=== PATIENT | male | born 1955 | race Caucasian/White ===

== ENCOUNTER 2022-07-05 11:46 | Inpatient (IN) | payer MEDICARE, SELFPAY ==
[2022-07-05] VITALS (7 sets, daily range): BP systolic 115–177; BP diastolic 70–116; PULSE 71–90; RESP 16–20; TEMP 36.6–37.1; O2SAT 95–100; BMI 21.9
--- NOTE | 2022-07-05 | ECG_ITS ---
Test Reason : PSYCH Blood Pressure : / mmHG Vent. Rate : 074 BPM Atrial Rate : 074 BPM P-R Int : 142 ms QRS Dur : 088 ms QT Int : 378 ms P-R-T Axes : 000 -22 010 degrees QTc Int : 419 ms Normal sinus rhythm Normal ECG When compared with ECG of 16-MAR-2020 03:17, No significant change was found Referred By: Marylou Lambert Electronically Signed By:WANDA WEI
--- NOTE | ~2022-07-05 | CT_ITS ---
EXAMINATION: CT HEAD WITHOUT CONTRAST CLINICAL INFORMATION: Fall. COMPARISON: None TECHNIQUE: Contiguous axial imaging was performed from the skull base to vertex without intravenous administration of contrast. This CT examination was performed using dose optimization techniques as appropriate, variously including the following: *Automated exposure control *Adjustment of mA and/or kV according to patient size (this includes techniques or standardized protocols for targeted exams where dose is matched to indication/reason for exam; i.e. extremities or head) *Use of iterative reconstruction technique DLP: 680 mGy-cm FINDINGS: There is no evidence of acute intracranial hemorrhage or territorial infarction. No abnormal mass effect or midline shift is seen. Barillas to white matter differentiation is well preserved. No extra-axial fluid collections are identified. No hydrocephalus. No significant volume loss. There is no abnormal attenuation within the brain parenchyma. No acute osseous or soft tissue abnormality. Bilateral mucoperiosteal thickening of the maxillary sinuses. Small secretions within left mastoid air cells. Right mastoid air cells are clear. CT/CT head/brain wo IV con IMPRESSION: No acute intracranial pathology.
--- NOTE | 2022-07-05 12:07 | ED.PSYCH ---
HPI - Psych General Chief Complaint: Psychiatric Symptoms Stated Complaint: SECTION 12, ETOH WITHDRAWAL Time Seen by Provider: 07/05/22 12:04 Source: patient and EMS Mode of arrival: EMS Limitations: no limitations History of Present Illness HPI Narrative: Patient presents to the emergency department via EMS. He is coming from [facility] today. Patient was transferred to that facility today from [facility]. While at [facility] he was endorsing SI as well as seeking detox from alcohol, heroin, crack cocaine. Per EMS report he was sent [facility] due to concerns for acute alcohol withdrawal with high scoring CIWA scale. While at [facility] he required benzodiazepines for treatment of withdrawal. Patient reports that he last drank alcohol a little over 24 hours ago, used heroin and crack cocaine 2 days ago. He does report a history of withdrawal seizures in the past. He was previously hospitalized in [place] approximately 5 months ago with severe withdrawal symptoms by his report. He is currently endorsing SI, he is vague and does not provide a specific plan. Related Data Allergies Allergy/AdvReac Type Severity Reaction Status Date / Time No Known Allergies Allergy Unverified 06/22/20 19:51 [No Known Allergies*] Review of Systems Review of Systems: Constitutional : No Fever, No Chills. Positive body aches ENT/Mouth : No Ear Pain, No Nasal Congestion, No sore throat Eyes: No Eye Pain, No Swelling, No Redness Cardiovascular : No Chest Pain, No SOB Respiratory : No Cough, No Sputum, No Dyspnea Gastrointestinal : No Nausea, No Vomiting, No Diarrhea, No Hematochezia, No Melena Genitourinary : No Dysuria, No Urinary Frequency, No Hematuria Musculoskeletal : No Myalgias Skin : No Skin Lesions, No rash Neuro : No Weakness, No Numbness, No Paresthesias, No Dizziness, No Headache Psych : positive Anxiety, positive Depression, positive SI/HI Heme/Lymph: No Lymphadenopathy Endocrine : No Polyuria, No Polydipsia Yes all other systems are reviewed and are negative ON LICENSE OF [facility] Past Medical History Attestation statement: The following information was validated with the patient. Source: old records reviewed Social History Social History Advance Directives: No Advance Directives Information Provided: No Physical Exam Vital Signs: Vital Signs: Last Vital Signs Temp 98.5 F 07/05/22 20:21 Pulse 87 07/05/22 20:21 Resp 17 07/05/22 20:21 BP 127/74 07/05/22 20:21 Pulse Ox 98 07/05/22 20:21 O2 Del Method 07/05/22 20:21 BMI result Body Mass Index 21.9 Appearance: Alert.?Oriented to person, place and time. No acute distress.? Appears uncomfortable. He is tremulous. Eyes: Pupils equal, round and reactive to light.? ENT: Pharynx normal.?? Neck: Normal inspection.? Neck supple.?? CVS: Heart sounds normal. Normal heart rate and rhythm.? Pulses normal.?? Respiratory: No respiratory distress.? Lung sounds clear to auscultation bilaterally?? Abdomen: Soft and non-tender. Normoactive bowel sounds. ? Skin: Skin warm and dry.? Normal skin color.? Normal skin turgor.?? Extremities: No lower extremity edema.? Neuro: Moves all extremities spontaneously. Sensation intact bilaterally. CN II-XII intact. No focal neuro deficits. Ambulates with normal steady gait. Course Course Course Narrative: Patient is a 67-year-old male with a past medical history of polysubstance abuse, anxiety, hypertension, hepatitis C, BPH presenting to the emergency department today from detox Center with concerns for acute alcohol withdrawal and suicidal ideations. CIWA 14, patient received phenobarbital intramuscular 10 mg/kg. Obtain basic lab conditions ethanol level and drug of abuse screen. Reevaluation(s) Reevaluation #1: Labs are overall unremarkable. Urinalysis positive for fentanyl, benzodiazepines, and cocaine. Ethanol level is undetectable. Symptoms improving significantly after phenobarbital. Patient does endorse some generalized anxiety, will discontinue phenobarbital at this time and transition to oral lorazepam. Patient was evaluated by care team, unable to make contact with [facility] Sal[facility] to determine whether patient may return to that facility. Patient has been accepted for inpatient psych to under Dr. Pepe. Patient updated on plan of care and verbalized understanding. [facility] - Psych Medical Records Attestation: I reviewed the patient's medical records. Lab Data Attestation: I reviewed the patient's lab results. Result diagrams: 07/05/22 12:44 07/05/22 12:44 Labs: Lab Results 07/05/22 07/05/22 07/05/22 Range/Units 12:33 12:44 12:44 WBC 10.0 (4.8-10.8) X10*3/uL RBC 4.94 (4.60-5.80) X10*6/uL Hgb 14.8 (14.0-18.0) g/dl Hct 44.4 (42.0-52.0) % MCV 89.9 (80.0-98.0) fL MCH 30.0 (27.0-33.0) pg MCHC 33.3 (31.0-36.0) g/dl RDW 12.7 (11.0-16.0) % Plt Count 239 (160-400) X10*3/uL MPV 10.5 (9.4-12.4) fL Immature Gran % (Auto) 0.5 H (0.0-0.4) % Neut % (Auto) 80.6 H (45-73) % Lymph % (Auto) 13.0 L (20-40) % Marshall % (Auto) 5.2 (2-11) % Eos % (Auto) 0.5 (0-4) % Baso % (Auto) 0.2 (0-2) % Lymph # (Auto) 1.3 (1.2-4.9) X10*3/uL Marshall # (Auto) 0.5 (0.1-1.2) X10*3/uL Eos # (Auto) 0.1 (0.0-0.4) X10*3/uL Baso # (Auto) 0.0 (0.0-0.2) X10*3/uL Abs Immat Gran (auto) 0.05 H (0.00-0.03) X10*3/uL Absolute Neuts (auto) 8.0 (2.0-8.3) x10*3/uL Absolute Nucleated RBC 0.000 (0.0-0.012) X10*3/uL Nucleated RBC % (auto) 0.0 (0.0-0.2) /100WBC Sodium 138 (135-145) mmol/L Potassium 4.2 (3.3-5.1) mmol/L Chloride 102 (96-108) mmol/L Carbon Dioxide 21 L (22-29) mmol/L Anion Gap 19 (12-20) BUN 22 H (9-16) mg/dL Creatinine 0.81 (0.5-1.4) mg/dL Estim Creat Clear Calc 81.6 Estimated GFR > 60 Random Glucose 97 (60-115) mg/dL Calcium 9.4 (8.4-10.2) mg/dL Total Bilirubin 0.9 (0.0-1.0) mg/dL AST 32 (5-37) U/L ALT 23 (0-40) U/L Alkaline Phosphatase 92 (39-117) U/L Total Protein 7.2 (6.5-8.0) g/dL Albumin 4.3 (3.5-5.0) g/dL Urine Opiates Screen (Not Detect) Urine Fentanyl Screen (Not Detect) Ur Barbiturates Screen (Not Detect) Ur Phencyclidine Scrn (Not Detect) Ur Amphetamines Screen (Not Detect) U Benzodiazepines Scrn (Not Detect) Urine Cocaine Screen (Not Detect) U Marijuana (THC) Screen (Not Detect) Ethyl Alcohol < 10 mg/dL COVID-19 (SHU) Negative (Negative) COVID-19 Clin Com See Note 07/05/22 Range/Units 14:18 WBC (4.8-10.8) X10*3/uL RBC (4.60-5.80) X10*6/uL Hgb (14.0-18.0) g/dl Hct (42.0-52.0) % MCV (80.0-98.0) fL MCH (27.0-33.0) pg MCHC (31.0-36.0) g/dl RDW (11.0-16.0) % Plt Count (160-400) X10*3/uL MPV (9.4-12.4) fL Immature Gran % (Auto) (0.0-0.4) % Neut % (Auto) (45-73) % Lymph % (Auto) (20-40) % Marshall % (Auto) (2-11) % Eos % (Auto) (0-4) % Baso % (Auto) (0-2) % Lymph # (Auto) (1.2-4.9) X10*3/uL Marshall # (Auto) (0.1-1.2) X10*3/uL Eos # (Auto) (0.0-0.4) X10*3/uL Baso # (Auto) (0.0-0.2) X10*3/uL Abs Immat Gran (auto) (0.00-0.03) X10*3/uL Absolute Neuts (auto) (2.0-8.3) x10*3/uL Absolute Nucleated RBC (0.0-0.012) X10*3/uL Nucleated RBC % (auto) (0.0-0.2) /100WBC Sodium (135-145) mmol/L Potassium (3.3-5.1) mmol/L Chloride (96-108) mmol/L Carbon Dioxide (22-29) mmol/L Anion Gap (12-20) BUN (9-16) mg/dL Creatinine (0.5-1.4) mg/dL Estim Creat Clear Calc Estimated GFR Random Glucose (60-115) mg/dL Calcium (8.4-10.2) mg/dL Total Bilirubin (0.0-1.0) mg/dL AST (5-37) U/L ALT (0-40) U/L Alkaline Phosphatase (39-117) U/L Total Protein (6.5-8.0) g/dL Albumin (3.5-5.0) g/dL Urine Opiates Screen Not Detected (Not Detect) Urine Fentanyl Screen POSITIVE H (Not Detect) Ur Barbiturates Screen Not Detected (Not Detect) Ur Phencyclidine Scrn Not Detected (Not Detect) Ur Amphetamines Screen Not Detected (Not Detect) U Benzodiazepines Scrn POSITIVE H (Not Detect) Urine Cocaine Screen POSITIVE H (Not Detect) U Marijuana (THC) Screen Not Detected (Not Detect) Ethyl Alcohol mg/dL COVID-19 ([facility]U) (Negative) COVID-19 Clin Com Discharge Plan Discharge Clinical Impression: Suicidal ideation, Polysubstance use disorder, Alcohol withdrawal Patient Disposition: Admitted As Inpatient
[2022-07-05 12:49] LABS: MANUAL DIFF FLAG NO
[2022-07-05 12:54] LABS: Basophils Percent Auto 0.2 % (0-2); Eosinophils Absolute Auto 0.1 X10*3/uL (0.0-0.4); Eosinophils Percent Auto 0.5 % (0-4); Hematocrit 44.4 % (42.0-52.0); Hemoglobin 14.8 g/dl (14.0-18.0); Imm Gran Abs Auto 0.05 X10*3/uL (0.00-0.03); Imm Gran Pct Auto 0.5 % (0.0-0.4); Lymphocytes Absolute Auto 1.3 X10*3/uL (1.2-4.9); Mean Corpuscular HGB Conc 33.3 g/dl (31.0-36.0); Mean Corpuscular Volume 89.9 fL (80.0-98.0); Mean Platelet Volume 10.5 fL (9.4-12.4); Monocytes Absolute Auto 0.5 X10*3/uL (0.1-1.2); Monocytes Percent Auto 5.2 % (2-11); Neutrophils Percent Auto 80.6 % (45-73); Platelet Count 239 X10*3/uL (160-400); Red Blood Count 4.94 X10*6/uL (4.60-5.80); Red Cell Distribution Width 12.7 % (11.0-16.0)
[2022-07-05 13:05] LABS: Alanine Aminotransferase 23 U/L (0-40); Albumin Level 4.3 g/dL (3.5-5.0); Alkaline Phosphatase 92 U/L (39-117); Anion Gap 19 (12-20); Aspartate Amino Transferase 32 U/L (5-37); Bilirubin Total 0.9 mg/dL (0.0-1.0); Blood Urea Nitrogen 22 mg/dL (9-16); Calcium 9.4 mg/dL (8.4-10.2); Carbon Dioxide 21 mmol/L (22-29); Chloride 102 mmol/L (96-108); Creatinine Clr Calc Pharmacy 81.6; Estimated Glomerular Filt Rate > 60; Ethanol < 10 mg/dL; Glucose Random 97 mg/dL (60-115); Potassium 4.2 mmol/L (3.3-5.1); Sodium 138 mmol/L (135-145); Total Protein 7.2 g/dL (6.5-8.0)
[2022-07-05 13:05] LABS: COVID-19 Test Negative (Negative); IDNOW Serial# 16C4AD1C
[2022-07-05] MEDS: PHENobarbitaL sodium 130 MG/ML IM ONCE 265 MG IM (13:11)
--- NOTE | 2022-07-05 13:15 | PC.NURSE ---
PT sectioned 12 from [facility] for concerns SI with plan to overdose. He states SI, denies HI. PT states he is a daily drinker, last drink was yesterday, also reports substance abuse. 1:1 sitter at beside, seizure precautions in place, IV and labs obtained, medications given as ordered.VSS.
[2022-07-05 14:36] LABS: Amphetamine Screen Urine Not Detected (Not Detect); Barbiturates, Urine Not Detected (Not Detect); Benzodiazepines Screen Urine POSITIVE (Not Detect); Cannabinoid Screen Urine Not Detected (Not Detect); Cocaine Screen Urine POSITIVE (Not Detect); Fentanyl, urine POSITIVE (Not Detect); Opiate Screen Urine Not Detected (Not Detect); Phencyclidine Screen Urine Not Detected (Not Detect)
--- NOTE | 2022-07-05 14:43 | MHC.CARE ---
CARE Team attempted to call Magali mutliple times regarding Pts bed. Plan for CARE Team to consider admission if magali does contact [facility] by 3pm.
[2022-07-05] MEDS: Acetaminophen 325 MG TABLET 650 MG PO (15:14)
[2022-07-05] MEDS: LORazepam 1 MG TABLET 2 MG PO ×2 (16:03→23:38)
[2022-07-05] MEDS: traZODone HCL 50 MG TABLET PO (23:32)
[2022-07-05] MEDS: cloNIDine HCL 0.1 MG TABLET PO (23:38)
[2022-07-06 01:40] VITALS: BP 102/60; PULSE 81; RESP 18; O2SAT 97
--- NOTE | 2022-07-06 02:24 | PC.NURSE ---
Addendum entered by Eliza Rowland RN 07/06/22 03:56: CT negative for intracranial bleeding. Addendum entered by Eliza Rowland RN 07/06/22 03:14: Pt headed down to radiology at [address] of head. Original Note: At 0140, Two MHA's heard loud noise and a pt yell out, called this RN and entered room to find pt in corner of room on floor. Pt was alert, stated he was trying to find the bathroom . Pt stated his head and back hurt. Pt was ambulated to bathroom and back to bed. Pt had been given Ativan 2mg and Clonidine 0.1mg was given a few hours earlier which added to pt's apparent unsteadiness. Pt was placed on 1:1 for safety. Provider conductor pullman Erin notified and CT and 1:1 ordered via telephone order. Will continue to monitor neuro's for changes.
[2022-07-06 06:00] VITALS: BP 121/76; PULSE 76; RESP 18; TEMP 36.7; O2SAT 98
--- NOTE | 2022-07-06 06:20 | PC.ADMIT ---
Pt is a 67yo male admitted to the unit after referral from [facility]ACH[facility]PERATOR in [place]. Pt walked into [facility] seeking help after OD on cocaine, ETOH and benzo's and was transferred to [facility] Sal[facility] for treatment. Divya Salazar transferred pt to [facility] ED for treatment d/t pt hx of DT/seizures during previous withdrawal epiodes. Pt arrived on M3 at 2325 on 07/05/2022. Legal status is CV. Pt medical issues are HTN, Hep C, with hx of DT/seizures when detoxing from alcohol, hx of primary adenocarcinoma of lower lobe of right lung. Per crisis eval, pt was sober for 2 mos and relapsed on all substances 2 weeks ag; he states, as a way to end his life. Utox was positive for Benzo's, Cocaine and ETOH with a BAL of 60. Pt has allergy to Seroquel and duck eggs per crisis eval. Pt psych dx hx is CHRISTOPHER, PTSD, Depression, cocaine, opiate and ETOH use d/o. Pt does not seem to have a precipitant to the event that could be found. Pt presents in hospital [facility] as irritable, anxious, uncomfortable and rocking in seat. VS included a bp of 177/116. call out clerk Don notified and orders obtained. CIWA scale in place, Pt given meds and laid down in room unable to participate in admission process. Pt placed on 15 min safety checks. Reports feeling safe in hospital.
--- NOTE | 2022-07-06 06:58 | PC.NURSE ---
Per Guido in security, pt has eyeglasses left behind at [facility] @ [phone]. States pt has to come picking tech after discharge. Called [facility] @ [phone] and spoke with someone who stated that pt was admitted for a period of a few hours then transferred to [facility] to address the medical issues. This person listed all things on their belongings list; i.e. smart watch, smartphone, [place] license, [place] license, cane, clothing, shoes etc. Then states they don't have any of the belongings. She advised me to call the houseperson to address @ [phone]. (Have not called yet). However, pt came direct from [facility] to [facility] ED so if belongings are not with them (which seems to this mortgage or loan underwriter that they believed he was returning there for behavioral issues after med issues addressed here) then they may be with [facility] @ [phone] who transported him from [facility] to here. [place] [id number]. -
[2022-07-06 08:32] LABS: Cholesterol 162 mg/dL; HDL Cholesterol 46 mg/dL; LDL Cholesterol Calculated 96 mg/dl; Triglycerides 104 mg/dL
[2022-07-06 08:36] LABS: Estimated Average Glucose 94 mg/dL; Hemoglobin A1C 106.4827 umol/L; Hemoglobin A1c % 4.9 %
[2022-07-06 08:55] LABS: Free T4 (Free Thyroxine) 0.94 ng/dL (0.71-1.85); Thyroid Stimulating Hormone 0.61 uIU/mL (0.32-4.0)
[2022-07-06] MEDS: Thiamine HCL 100 MG TABLET 50 MG PO (08:58)
[2022-07-06] MEDS: Pyridoxine HCl (Vitamin B6) 50 MG TABLET 25 MG PO (08:58)
[2022-07-06] MEDS: Acetaminophen 325 MG TABLET 650 MG PO ×2 (08:59→21:53)
[2022-07-06] MEDS: Folic Acid 1 MG TABLET PO (08:59)
[2022-07-06] MEDS: LORazepam 1 MG TABLET 2 MG PO (08:59)
[2022-07-06] MEDS: Ondansetron ODT 4 MG TAB.RAPDIS TRANSLINGU ×3 (08:59→21:54)
[2022-07-06 11:54] LABS: Folate 13.5 ng/mL (> or = 4.0); Vitamin B12 572 pg/mL (200-900)
--- NOTE | 2022-07-06 12:19 | HO.PSYADMNOT ---
HPI Date of Service: 07/06/22 Chief Complaint: SECTION 12, ETOH WITHDRAWAL Sources of Information: chart reviewed and crisis/core team assessment reviewed HPI Subjective Notes: Conditional Voluntary Narrative: The patient is a 67-year-old male, born and raised in [place], immigrated to the [facility] and 18 80 when he was 23 years own, with an extensive history of substance abuse mostly alcohol, cocaine and opioids, referred from [facility] after he walked in intoxicated with alcohol, 2 bags of heroin and crack cocaine in a suicidal attempt. The patient was supposed to go to [facility] but he was not medically stable and transferred to this facility for psychiatric / medical stabilization. According to the chart, the patient has an extensive history of substance abuse mostly alcohol, cocaine and heroin with several treatments such as IOP, [place] treatment, a and others. While in the unit, the patient was on CIWA protocol and he was scoring over 10. I tried to interview the patient but he was extremely sedated. Even though his vital signs were stable. At this moment we could not get any collateral information or we could not interview the patient due to his the recent use of benzodiazepines and anti seizures. According to collateral information from the emergency room the patient has history of the and tremens and seizures induced by alcohol withdrawal. Past Psychiatric History: according to the chart, the patient has prior treatment for substance abuse and prior admissions into the hospital for suicidal ideation. Medical Evaluation Reviewed: Hospitalist Jojo Pending [facility] Family History: Unclear, apparently her father in 2007 and was very traumatic Social History: unable to get at this moment. The patient was born and raised in [place] him agreed on his early 20s he has worked independently currently he is on SSI. Substance History: History of alcohol abuse, crack cocaine and opioids. Several admissions for substance abuse treatment such as IOP, npatienti treatment and others. He has also Section 35 treatment Trauma History: as per the chart denies history of sexual abuse and clear at this moment Diagnostics Vital Signs (24Hr): Vital Signs - 24 hr 07/05/22 15:40 07/05/22 17:57 07/05/22 20:21 Temperature 98.4 F 97.9 F 98.5 F Pulse Rate 89 78 87 Respiratory Rate 16 16 17 Blood Pressure 128/83 115/70 127/74 Pulse Oximetry 98 97 98 Oxygen Delivery Method Room Air Room Air Room Air 07/05/22 21:53 07/05/22 22:19 07/05/22 23:25 Temperature 98.7 F 98.7 F 98.0 F Pulse Rate 76 71 90 Respiratory Rate 18 18 18 Blood Pressure 131/78 139/84 177/116 H Pulse Oximetry 95 97 97 Oxygen Delivery Method Room Air Room Air Room Air 07/06/22 01:40 07/06/22 06:00 Temperature 98.1 F Pulse Rate 81 76 Respiratory Rate 18 18 Blood Pressure 102/60 121/76 Pulse Oximetry 97 98 Oxygen Delivery Method Room Air Room Air BMI result Body Mass Index 21.9 Labs Results: 07/05/22 12:44 07/05/22 12:44 Labs: Laboratory Results - last 48 hr 07/05/22 07/05/22 07/05/22 12:33 12:44 12:44 WBC 10.0 RBC 4.94 Hgb 14.8 Hct 44.4 MCV 89.9 MCH 30.0 MCHC 33.3 RDW 12.7 Plt Count 239 MPV 10.5 Immature Gran % (Auto) 0.5 H Neut % (Auto) 80.6 H Lymph % (Auto) 13.0 L [place] % (Auto) 5.2 Eos % (Auto) 0.5 Baso % (Auto) 0.2 Lymph # (Auto) 1.3 [place] # (Auto) 0.5 Eos # (Auto) 0.1 Baso # (Auto) 0.0 Abs Immat Gran (auto) 0.05 H Absolute Neuts (auto) 8.0 Absolute Nucleated RBC 0.000 Nucleated RBC % (auto) 0.0 Sodium 138 Potassium 4.2 Chloride 102 Carbon Dioxide 21 L Anion Gap 19 BUN 22 H Creatinine 0.81 Estim Creat Clear Calc 81.6 Estimated GFR > 60 Random Glucose 97 Estimat Average Glucose Hemoglobin A1c % Calcium 9.4 Magnesium Total Bilirubin 0.9 AST 32 ALT 23 Alkaline Phosphatase 92 Total Protein 7.2 Albumin 4.3 Triglycerides Cholesterol LDL Cholesterol, Calc HDL Cholesterol Vitamin B12 Folate TSH Free T4 Urine Opiates Screen Urine Fentanyl Screen Ur Barbiturates Screen Ur Phencyclidine Scrn Ur Amphetamines Screen U Benzodiazepines Scrn Urine Cocaine Screen U Marijuana (THC) Screen Ethyl Alcohol < 10 COVID-19 ([facility]U) Negative COVID-19 Clin Com See Note 07/05/22 07/06/22 07/06/22 14:18 08:04 08:04 WBC RBC Hgb Hct MCV MCH MCHC RDW Plt Count MPV Immature Gran % (Auto) Neut % (Auto) Lymph % (Auto) Culberson % (Auto) Eos % (Auto) Baso % (Auto) Lymph # (Auto) [place] # (Auto) Eos # (Auto) Baso # (Auto) Abs Immat Gran (auto) Absolute Neuts (auto) Absolute Nucleated RBC Nucleated RBC % (auto) Sodium Potassium Chloride Carbon Dioxide Anion Gap BUN Creatinine Estim Creat Clear Calc Estimated GFR Random Glucose Estimat Average Glucose 94 Hemoglobin A1c % 4.9 Calcium Magnesium 2.0 Total Bilirubin AST ALT Alkaline Phosphatase Total Protein Albumin Triglycerides 104 Cholesterol 162 LDL Cholesterol, Calc 96 HDL Cholesterol 46 Vitamin B12 Folate TSH 0.61 Free T4 0.94 Urine Opiates Screen Not Detected Urine Fentanyl Screen POSITIVE H Ur Barbiturates Screen Not Detected Ur Phencyclidine Scrn Not Detected Ur Amphetamines Screen Not Detected U Benzodiazepines Scrn POSITIVE H Urine Cocaine Screen POSITIVE H U Marijuana (THC) Screen Not Detected Ethyl Alcohol COVID-19 (SHU) COVID-19 NTN [employer] 07/06/22 08:04 WBC RBC Hgb Hct MCV MCH MCHC RDW Plt Count MPV Immature Gran % (Auto) Neut % (Auto) Lymph % (Auto) Cul[place] % (Auto) Eos % (Auto) Baso % (Auto) Lymph # (Auto) [place] # (Auto) Eos # (Auto) Baso # (Auto) Abs Immat Gran (auto) Absolute Neuts (auto) Absolute Nucleated RBC Nucleated RBC % (auto) Sodium Potassium Chloride Carbon Dioxide Anion Gap BUN Creatinine Estim Creat Clear Calc Estimated GFR Random Glucose Estimat Average Glucose Hemoglobin A1c % Calcium Magnesium Total Bilirubin AST ALT Alkaline Phosphatase Total Protein Albumin Triglycerides Cholesterol LDL Cholesterol, Calc HDL Cholesterol Vitamin B12 572 Folate 13.5 TSH Free T4 Urine Opiates Screen Urine Fentanyl Screen Ur Barbiturates Screen Ur Phencyclidine Scrn Ur Amphetamines Screen U Benzodiazepines Scrn Urine Cocaine Screen U Marijuana (THC) Screen Ethyl Alcohol COVID-19 (SHU) COVID-19 Pumpic Com Imaging Radiology Impressions: ITS Impressions Head CT 07/06/22 03:34 IMPRESSION: No acute intracranial pathology. Meds/Allergies Meds Home Medications Medication Instructions Recorded Confirmed Type finasteride 5 mg tablet 1 tab PO DAILY 07/06/22 07/06/22 History gabapentin 100 mg capsule 1 cap PO TID 10/01/22 10/01/22 History tamsulosin 0.4 mg capsule (Flomax) 0.8 mg PO BEDTIME 07/06/22 07/06/22 History Allergies Allergies Allergy/AdvReac Type Severity Reaction Status Date / Time egg Allergy Unknown Unknown Unverified 07/06/22 06:00 quetiapine [From Seroquel] Allergy Unknown Involuntary Unverified 07/06/22 06:02 Spasms Mental Status Exam Mental Status Exam Patient Appearance: Appropriate ( hospital gowns) Level of Consciousness: Drowsy and Sedated Patient Behavior: Asleep Mood Description: Withdrawn Affect Description: Blunted Patient Cognition Impaired: No Ability to Follow Directions: Poor Speech Pattern: Impoverished Hallucinations: None Delusions: Not Present Thought Process: Slowed Thinking and Confusion Thought Content: positive for Disoriented Judgement: Poor Assessment & Plan Assessment & Plan (1) Suicidal ideation: Status: Acute Code(s): R45.851 - Suicidal ideations (2) Polysubstance use disorder: Status: Acute Code(s): F19.90 - Other psychoactive substance use, unspecified, uncomplicated (3) Alcohol withdrawal: Status: Acute Code(s): F10.939 - Alcohol use, unspecified with withdrawal, unspecified Plan adult male with a long history of alcohol use disorder, cocaine use disorder and opiate use disorder admitted after suicidal attempt by overdose on drugs. At this moment very limited information since the patient is on benzodiazepine withdrawal protocol. 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 Plan 1. Gather collateral information. 2. Continue CINC protocol. 3. We had a CT scan and other treatment since he fall last night. 4. One-to-one observation for safety Patient educated on: therapeutic strategies Informed Consent: further education needed Reason for continued inpatient stay Substantial Risk for: harm to self, inability to function, rapid decompensation and med/psych decompensation
--- NOTE | 2022-07-06 13:04 | PC.NURSE ---
Patient approached this morning to signed legal forms. Patient states that he will not sign anything because he does not have his glasses with him [facility] has them .
[2022-07-06] MEDS: hydrOXYzine HCL 25 MG TABLET PO ×2 (13:41→21:54)
[2022-07-06] MEDS: cloNIDine HCL 0.1 MG TABLET PO (13:41)
[2022-07-06] MEDS: Gabapentin 100 MG CAPSULE PO ×2 (16:01→21:54)
[2022-07-06] MEDS: LORazepam 1 MG TABLET PO ×2 (16:01→21:54)
[2022-07-06 21:50] VITALS: BP 148/71; PULSE 88; RESP 18; TEMP 36.8; O2SAT 99
[2022-07-06] MEDS: Tamsulosin HCL 0.4 MG CAPSULE 0.8 MG PO (21:53)
[2022-07-06] MEDS: traZODone HCL 50 MG TABLET PO (21:54)
--- NOTE | 2022-07-07 05:05 | PC.NURSE ---
At approximately 0415, sitter in [facility] yelled out for help and a loud sound was heard. Upon arrival to [facility], pt was sitting/almost crouching between bed and wall. Assessed for injuries and pt denied any injury. Assisted pt to standing position and ambulated to bathroom. Pt alert and oriented. Also of note that pt does not seem to fully open his eyes when attempting to walk. Pt unsteady at times. Pt ambulated back to bed and assisted to comfortable position. Pt once again denied pain of injuries. Per pt's sitter, pt attempted to stand on far side of bed by the wall, sitter then asked pt to get up from the other side of bed, pt did not respond and continued to stand. Sitter then rushed to assist pt from wall side of bed attempting to hold his arm to steady pt, pt lost balance and extended arms out hitting his right forearm against the wall. Will continue to monitor throughout the shift.
[2022-07-07 08:30] VITALS: BP 107/64; PULSE 76; RESP 16; TEMP 36.6; O2SAT 98
[2022-07-07] MEDS: Pyridoxine HCl (Vitamin B6) 50 MG TABLET 25 MG PO (08:41)
[2022-07-07] MEDS: Gabapentin 100 MG CAPSULE PO ×3 (08:42→20:34)
[2022-07-07] MEDS: Thiamine HCL 100 MG TABLET 50 MG PO (08:42)
[2022-07-07] MEDS: LORazepam 1 MG TABLET PO (08:42)
[2022-07-07] MEDS: Folic Acid 1 MG TABLET PO (08:42)
[2022-07-07] MEDS: Finasteride 5 MG TABLET PO (08:43)
[2022-07-07 10:23] VITALS: BP 113/60; PULSE 79; RESP 16; TEMP 36.8; O2SAT 95
[2022-07-07] MEDS: hydrOXYzine HCL 25 MG TABLET PO ×2 (10:40→19:08)
--- NOTE | 2022-07-07 12:03 | P.PNPSI_ITS ---
Subjective Subjective Date of Service: 07/07/22 Reason For Visit: SECTION 12, ETOH WITHDRAWAL Subjective Notes: Conditional Voluntary Interim History: The nursing staff reported that the patient still score on the CIWA scale 9 today at 09:30. On interview the patient reports that his feeling is slightly better he is less sedated and he stated that he is still worried about he is belongings on the other hospital. He adamantly denied auditory hallucinations or active suicidal ideation at this moment. Mental Status Exam Mental Status Exam Patient Appearance: Well Grooomed Patient Orientation: Person and Situation Level of Consciousness: Awake Patient Behavior: Cooperative Mood Description: Calm Affect Description: Constricted Patient Cognition Impaired: No Ability to Follow Directions: Good Speech Pattern: Clear Hallucinations: None Delusions: Not Present Thought Process: Linear Thought Content: positive for Circumstantial Judgement: Fair Diagnostics Vital Signs (24Hr): Vital Signs - 24 hr 07/06/22 21:50 07/07/22 08:30 Temperature 98.2 F 98 F Pulse Rate 88 76 Respiratory Rate 18 16 Blood Pressure 148/71 H 107/64 Pulse Oximetry 99 98 Oxygen Delivery Method Room Air Room Air BMI result Body Mass Index 21.9 Labs Results: 07/05/22 12:44 07/05/22 12:44 Labs: Laboratory Results - last 48 hr 07/05/22 07/05/22 07/05/22 12:33 12:44 12:44 WBC 10.0 RBC 4.94 Hgb 14.8 Hct 44.4 MCV 89.9 MCH 30.0 MCHC 33.3 RDW 12.7 Plt Count 239 MPV 10.5 Immature Gran % (Auto) 0.5 H Neut % (Auto) 80.6 H Lymph % (Auto) 13.0 L [place] % (Auto) 5.2 Eos % (Auto) 0.5 Baso % (Auto) 0.2 Lymph # (Auto) 1.3 [place] # (Auto) 0.5 Eos # (Auto) 0.1 Baso # (Auto) 0.0 Abs Immat Gran (auto) 0.05 H Absolute Neuts (auto) 8.0 Absolute Nucleated RBC 0.000 Nucleated RBC % (auto) 0.0 Sodium 138 Potassium 4.2 Chloride 102 Carbon Dioxide 21 L Anion Gap 19 BUN 22 H Creatinine 0.81 Estim Creat Clear Calc 81.6 Estimated GFR > 60 Random Glucose 97 Estimat Average Glucose Hemoglobin A1c % Calcium 9.4 Magnesium Total Bilirubin 0.9 AST 32 ALT 23 Alkaline Phosphatase 92 Total Protein 7.2 Albumin 4.3 Triglycerides Cholesterol LDL Cholesterol, Calc HDL Cholesterol Vitamin B12 Folate TSH Free T4 Urine Opiates Screen Urine Fentanyl Screen Ur Barbiturates Screen Ur Phencyclidine Scrn Ur Amphetamines Screen U Benzodiazepines Scrn Urine Cocaine Screen U Marijuana (THC) Screen Ethyl Alcohol < 10 COVID-19 ([facility]) Negative COVID-19 Clin Com See Note 07/05/22 07/06/22 07/06/22 14:18 08:04 08:04 WBC RBC Hgb Hct MCV MCH MCHC RDW Plt Count MPV Immature Gran % (Auto) Neut % (Auto) Lymph % (Auto) [place] % (Auto) Eos % (Auto) Baso % (Auto) Lymph # (Auto) [place] # (Auto) Eos # (Auto) Baso # (Auto) Abs Immat Gran (auto) Absolute Neuts (auto) Absolute Nucleated RBC Nucleated RBC % (auto) Sodium Potassium Chloride Carbon Dioxide Anion Gap BUN Creatinine Estim Creat Clear Calc Estimated GFR Random Glucose Estimat Average Glucose 94 Hemoglobin A1c % 4.9 Calcium Magnesium 2.0 Total Bilirubin AST ALT Alkaline Phosphatase Total Protein Albumin Triglycerides 104 Cholesterol 162 LDL Cholesterol, Calc 96 HDL Cholesterol 46 Vitamin B12 Folate TSH 0.61 Free T4 0.94 Urine Opiates Screen Not Detected Urine Fentanyl Screen POSITIVE H Ur Barbiturates Screen Not Detected Ur Phencyclidine Scrn Not Detected Ur Amphetamines Screen Not Detected U Benzodiazepines Scrn POSITIVE H Urine Cocaine Screen POSITIVE H U Marijuana (THC) Screen Not Detected Ethyl Alcohol COVID-19 ([facility]) COVID-19 Clin Com 07/06/22 08:04 WBC RBC Hgb Hct MCV MCH MCHC RDW Plt Count MPV Immature Gran % (Auto) Neut % (Auto) Lymph % (Auto) [place] % (Auto) Eos % (Auto) Baso % (Auto) Lymph # (Auto) [place] # (Auto) Eos # (Auto) Baso # (Auto) Abs Immat Gran (auto) Absolute Neuts (auto) Absolute Nucleated RBC Nucleated RBC % (auto) Sodium Potassium Chloride Carbon Dioxide Anion Gap BUN Creatinine Estim Creat Clear Calc Estimated GFR Random Glucose Estimat Average Glucose Hemoglobin A1c % Calcium Magnesium Total Bilirubin AST ALT Alkaline Phosphatase Total Protein Albumin Triglycerides Cholesterol LDL Cholesterol, Calc HDL Cholesterol Vitamin B12 572 Folate 13.5 TSH Free T4 Urine Opiates Screen Urine Fentanyl Screen Ur Barbiturates Screen Ur Phencyclidine Scrn Ur Amphetamines Screen U Benzodiazepines Scrn Urine Cocaine Screen U Marijuana (THC) Screen Ethyl Alcohol COVID-19 ([facility]) COVID-19 Clin Com Imaging Radiology Impressions: ITS Impressions Head CT 07/06/22 03:34 IMPRESSION: No acute intracranial pathology. Medications Medications Current Medications Acetaminophen (Acetaminophen 325 Mg Tablet) 650 mg PO Q6H PRN PRN Reason: Headache/Pain Mild Scale (1-3) Last Admin: 07/06/22 21:53 Dose: 650 mg Al Hydroxide/Mg Hydroxide (Magnesium Hydrox/Alum Hydrox 30 Ml Oral.Susp) 30 ml PO Q6H PRN PRN Reason: Heartburn/Nausea Clonidine HCl (Clonidine Hcl 0.1 Mg Tablet) 0.1 mg PO TID PRN; Protocol PRN Reason: hyperarousal Last Admin: 07/06/22 13:41 Dose: 0.1 mg Finasteride (Finasteride 5 Mg Tablet) 5 mg PO DAILY [facility] Last Admin: 07/07/22 08:43 Dose: 5 mg Folic Acid (Folic Acid 1 Mg Tablet) 1 mg PO DAILY [facility] Last Admin: 07/07/22 08:42 Dose: 1 mg Gabapentin (Gabapentin 100 Mg Capsule) 100 mg PO TID [facility] Last Admin: 07/07/22 08:42 Dose: 100 mg Hydroxyzine HCl (Hydroxyzine Hcl 25 Mg Tablet) 25 mg PO Q6H PRN PRN Reason: Anxiety Last Admin: 07/07/22 10:40 Dose: 25 mg Lorazepam (Lorazepam 1 Mg Tablet) 1 mg PO Q4H PRN PRN Reason: alcohol withdrawal CIWA 8-12 Last Admin: 07/07/22 08:42 Dose: 1 mg Lorazepam (Lorazepam 1 Mg Tablet) 2 mg PO Q4H PRN PRN Reason: alcohol withdrawal CIWA greater than 12 Magnesium Hydroxide (Milk Of Magnesia 30 Ml Oral.Susp) 30 ml PO DAILY PRN PRN Reason: Constipation Ondansetron HCl (Ondansetron Odt 4 Mg Tab.Rapdis) 4 mg TRANSLINGU Q6H PRN PRN Reason: Nausea Last Admin: 07/06/22 21:54 Dose: 4 mg Pyridoxine HCl (Pyridoxine Hcl (Vitamin B6) 50 Mg Tablet) 25 mg PO DAILY [facility] Last Admin: 07/07/22 08:41 Dose: 25 mg Tamsulosin HCl (Tamsulosin Hcl 0.4 Mg Capsule) 0.8 mg PO BEDTIME [facility] Last Admin: 07/06/22 21:53 Dose: 0.8 mg Thiamine HCl (Thiamine Hcl 100 Mg Tablet) 50 mg PO DAILY [facility] Last Admin: 07/07/22 08:42 Dose: 50 mg Trazodone HCl (Trazodone Hcl 50 Mg Tablet) 50 mg PO BEDTIME PRN PRN Reason: Insomnia Last Admin: 07/06/22 21:54 Dose: 50 mg Allergies Allergies Allergy/AdvReac Type Severity Reaction Status Date / Time egg Allergy Unknown Unknown Unverified 07/06/22 06:00 quetiapine [From Seroquel] Allergy Unknown Involuntary Unverified 07/06/22 06:02 Spasms Assessment & Plan Assessment & Plan (1) Suicidal ideation: Status: Acute Code(s): R45.851 - Suicidal ideations (2) Polysubstance use disorder: Status: Acute Code(s): F19.90 - Other psychoactive substance use, unspecified, uncomplicated (3) Alcohol withdrawal: Status: Acute Code(s): F10.939 - Alcohol use, unspecified with withdrawal, unspecified Plan adult male with a long history of alcohol use disorder, cocaine use disorder and opiate use disorder admitted after suicidal attempt by overdose on drugs. At this moment very limited information since the patient is on benzodiazepine withdrawal protocol. 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 Plan 1. Gather collateral information. 2. Continue [facility] protocol. 3. We had a CT scan and other treatment since he fall last night. 4. One-to-one observation for safety I spent __20____ minutes with the patient and/or on the patient floor today, greater than?50% of which was spent counseling/coordinating care. Reason for contiued inpatient stay Substantial Risk for: inability to function, rapid decompensation and med/psych decompensation
[2022-07-07 13:20] VITALS: BP 126/71; PULSE 75; RESP 16; TEMP 36.8; O2SAT 97
[2022-07-07] MEDS: cloNIDine HCL 0.1 MG TABLET PO ×2 (14:01→19:08)
[2022-07-07] MEDS: Acetaminophen 325 MG TABLET 650 MG PO (14:11)
[2022-07-07 16:48] VITALS: BP 106/56; PULSE 70; RESP 16; TEMP 36.6; O2SAT 97
[2022-07-07 18:55] VITALS: BP 138/89; PULSE 88; RESP 16; TEMP 36.8; O2SAT 99
[2022-07-07 20:15] VITALS: BP 143/82; PULSE 86; RESP 16; TEMP 36.8; O2SAT 99
[2022-07-07] MEDS: traZODone HCL 50 MG TABLET PO (20:34)
[2022-07-07] MEDS: Tamsulosin HCL 0.4 MG CAPSULE 0.8 MG PO (20:34)
[2022-07-07] MEDS: diazePAM 5 MG TABLET PO (20:34)
[2022-07-08] MEDS: Acetaminophen 325 MG TABLET 650 MG PO ×2 (00:24→19:11)
[2022-07-08] MEDS: Ibuprofen 800 MG TABLET PO ×3 (00:42→20:17)
[2022-07-08 08:02] VITALS: BP 125/78; PULSE 74; RESP 16; TEMP 36.3; O2SAT 99
[2022-07-08] MEDS: Thiamine HCL 100 MG TABLET 50 MG PO (08:12)
[2022-07-08] MEDS: Gabapentin 100 MG CAPSULE PO (08:12)
[2022-07-08] MEDS: Finasteride 5 MG TABLET PO (08:12)
[2022-07-08] MEDS: Pyridoxine HCl (Vitamin B6) 50 MG TABLET 25 MG PO (08:13)
[2022-07-08] MEDS: Folic Acid 1 MG TABLET PO (08:13)
[2022-07-08] MEDS: cloNIDine HCL 0.1 MG TABLET PO (10:07)
[2022-07-08] MEDS: Ondansetron ODT 4 MG TAB.RAPDIS TRANSLINGU (14:10)
[2022-07-08] MEDS: LORazepam 1 MG TABLET PO ×2 (14:25→20:17)
[2022-07-08] MEDS: Gabapentin 100 MG CAPSULE 200 MG PO ×2 (14:26→20:16)
--- NOTE | 2022-07-08 14:33 | HO.PSYCHPN ---
Subjective Subjective Date of Service: 07/08/22 Reason For Visit: SECTION 12, ETOH WITHDRAWAL Interim History: pt seen, chart reviewed. calm and cooperative, pleasant older gentleman. details his recent history of relapse. states he is fine to walk now. explains ativan taper to be completed. discuss pt's needs prior to discharge, such as collecting his belongings from various hospitals in the area and finding his car. meds reviewed and corrected. planning to complete detox and then discharge to providers in [place] and [facility]. per staff, irritable. slept much of the day. problems walking with walker. eating well. denies SI/HI/AVH. Mental Status Exam Mental Status Exam Narrative: calm, cooperative. no PMA/PMR. adequately dressed and groomed. speech nml rate, amount, loudness, tone, latency. thoughts linear and logical. affect constricted, normo-intense, non-labile. denies SI/SIBI. no HI/AVH expressed. Diagnostics Vital Signs (24Hr): Vital Signs - 24 hr 07/07/22 16:48 07/07/22 20:15 07/08/22 08:02 Temperature 97.9 F 98.2 F 97.3 F Pulse Rate 70 86 74 Respiratory Rate 16 16 16 Blood Pressure 106/56 L 143/82 H 125/78 Pulse Oximetry 97 99 99 Oxygen Delivery Method Room Air Room Air Room Air BMI result Body Mass Index 21.9 Labs Results: 07/05/22 12:44 07/05/22 12:44 Imaging Radiology Impressions: ITS Impressions Head CT 07/06/22 03:34 IMPRESSION: No acute intracranial pathology. Medications Medications Current Medications Acetaminophen (Acetaminophen 325 Mg Tablet) 650 mg PO Q6H PRN PRN Reason: Headache/Pain Mild Scale (1-3) Last Admin: 07/08/22 00:24 Dose: 650 mg Al Hydroxide/Mg Hydroxide (Magnesium Hydrox/Alum Hydrox 30 Ml Oral.Susp) 30 ml PO Q6H PRN PRN Reason: Heartburn/Nausea Clonidine HCl (Clonidine Hcl 0.1 Mg Tablet) 0.1 mg PO TID PRN; Protocol PRN Reason: hyperarousal Last Admin: 07/08/22 10:07 Dose: 0.1 mg Finasteride (Finasteride 5 Mg Tablet) 5 mg PO DAILY [facility] Last Admin: 07/08/22 08:12 Dose: 5 mg Folic Acid (Folic Acid 1 Mg Tablet) 1 mg PO DAILY [facility] Last Admin: 07/08/22 08:13 Dose: 1 mg Gabapentin (Gabapentin 100 Mg Capsule) 200 mg PO TID [facility] Last Admin: 07/08/22 14:26 Dose: 200 mg Hydroxyzine HCl (Hydroxyzine Hcl 25 Mg Tablet) 25 mg PO Q6H PRN PRN Reason: Anxiety Last Admin: 07/07/22 19:08 Dose: 25 mg Ibuprofen (Ibuprofen 800 Mg Tablet) 800 mg PO Q8H PRN PRN Reason: Pain, Moderate (Pain Scale 4-6 Last Admin: 07/08/22 14:26 Dose: 800 mg Lorazepam (Lorazepam 1 Mg Tablet) 1 mg PO BID [facility] Stop: 07/08/22 21:01 Last Admin: 07/08/22 14:25 Dose: 1 mg Lorazepam (Lorazepam 0.5 Mg Tablet) 0.5 mg PO BID [facility] Stop: 07/10/22 09:01 Magnesium Hydroxide (Milk Of Magnesia 30 Ml Oral.Susp) 30 ml PO DAILY PRN PRN Reason: Constipation Ondansetron HCl (Ondansetron Odt 4 Mg Tab.Rapdis) 4 mg TRANSLINGU Q6H PRN PRN Reason: Nausea Last Admin: 07/08/22 14:10 Dose: 4 mg Pyridoxine HCl (Pyridoxine Hcl (Vitamin B6) 50 Mg Tablet) 25 mg PO DAILY [facility] Last Admin: 07/08/22 08:13 Dose: 25 mg Tamsulosin HCl (Tamsulosin Hcl 0.4 Mg Capsule) 0.8 mg PO BEDTIME [facility] Last Admin: 07/07/22 20:34 Dose: 0.8 mg Thiamine HCl (Thiamine Hcl 100 Mg Tablet) 50 mg PO DAILY [facility] Last Admin: 07/08/22 08:12 Dose: 50 mg Trazodone HCl (Trazodone Hcl 50 Mg Tablet) 50 mg PO BEDTIME PRN PRN Reason: Insomnia Last Admin: 07/07/22 20:34 Dose: 50 mg Trazodone HCl (Trazodone Hcl 100 Mg Tablet) 100 mg PO BEDTIME [facility] Allergies Allergies Allergy/AdvReac Type Severity Reaction Status Date / Time quetiapine [From Seroquel] Allergy Unknown Involuntary Unverified 07/06/22 06:02 Spasms Assessment & Plan Assessment & Plan (1) Suicidal ideation: Status: Acute Code(s): R45.851 - Suicidal ideations (2) Polysubstance use disorder: Status: Acute Code(s): F19.90 - Other psychoactive substance use, unspecified, uncomplicated (3) Alcohol withdrawal: Status: Acute Code(s): F10.939 - Alcohol use, unspecified with withdrawal, unspecified Plan adult male with a long history of alcohol use disorder, cocaine use disorder and opiate use disorder admitted after suicidal attempt by overdose on drugs. At this moment very limited information since the patient is on benzodiazepine withdrawal protocol. The patient has a long history of delirium tremens, and seizures induced by alcohol withdrawal. Plan placed on CIWA at admission. 3 days later changed to ativan taper. had a fall early on, was on 1:1 for fall risk. later in stay appeared better able to ambvulate. PT opined earlier problems were probably associated with withdrawal/medications and that he now appears able to ambulate safely. 1:1 DCed 07/08. I spent __25____ minutes with the patient and/or on the patient floor today, greater than?50% of which was spent counseling/coordinating care. Reason for contiued inpatient stay Substantial Risk for: inability to function and rapid decompensation
[2022-07-08 20:00] VITALS: BP 162/89; PULSE 76; RESP 16; TEMP 36.8; O2SAT 98
[2022-07-08] MEDS: Tamsulosin HCL 0.4 MG CAPSULE 0.8 MG PO (20:16)
[2022-07-08] MEDS: traZODone HCL 100 MG TABLET PO (20:17)
[2022-07-09 08:00] VITALS: BP 137/84; PULSE 75; RESP 18; TEMP 36.6; O2SAT 99
[2022-07-09] MEDS: Thiamine HCL 100 MG TABLET 50 MG PO (09:20)
[2022-07-09] MEDS: Folic Acid 1 MG TABLET PO (09:20)
[2022-07-09] MEDS: Ibuprofen 800 MG TABLET PO ×2 (09:21→21:08)
[2022-07-09] MEDS: Pyridoxine HCl (Vitamin B6) 50 MG TABLET 25 MG PO (09:21)
[2022-07-09] MEDS: Gabapentin 100 MG CAPSULE 200 MG PO ×3 (09:22→20:02)
[2022-07-09] MEDS: Finasteride 5 MG TABLET PO (09:22)
[2022-07-09] MEDS: Acetaminophen 325 MG TABLET 650 MG PO (12:04)
--- NOTE | 2022-07-09 14:24 | HO.PSYCHPN ---
Subjective Subjective Date of Service: 07/09/22 Reason For Visit: SECTION 12, ETOH WITHDRAWAL Interim History: calm, cooperative. feeling better day by day. asking for discharge tomorrow. collecting his effects from various hospitals. no SI. declines naltrexone. per staff, high anxiety/depression. wants to track down his belongings. denies SI/HI/AVH. shaking, irritable, guarded eves. slept well. Mental Status Exam Mental Status Exam Narrative: calm, cooperative. no PMA/PMR. adequately dressed and groomed. speech nml rate, amount, loudness, tone, latency. thoughts linear and logical. affect constricted, normo-intense, non-labile. denies SI/SIBI. no HI/AVH expressed. Diagnostics Vital Signs (24Hr): Vital Signs - 24 hr 07/08/22 20:00 07/09/22 08:00 Temperature 98.3 F 97.8 F Pulse Rate 76 75 Respiratory Rate 16 18 Blood Pressure 162/89 H 137/84 Pulse Oximetry 98 99 Oxygen Delivery Method Room Air Room Air BMI result Body Mass Index 21.9 Labs Results: 07/05/22 12:44 07/05/22 12:44 Imaging Radiology Impressions: ITS Impressions Head CT 07/06/22 03:34 IMPRESSION: No acute intracranial pathology. Medications Medications Current Medications Acetaminophen (Acetaminophen 325 Mg Tablet) 650 mg PO Q6H PRN PRN Reason: Headache/Pain Mild Scale (1-3) Last Admin: 07/09/22 12:04 Dose: 650 mg Al Hydroxide/Mg Hydroxide (Magnesium Hydrox/Alum Hydrox 30 Ml Oral.Susp) 30 ml PO Q6H PRN PRN Reason: Heartburn/Nausea Clonidine HCl (Clonidine Hcl 0.1 Mg Tablet) 0.1 mg PO TID PRN; Protocol PRN Reason: hyperarousal Last Admin: 07/08/22 10:07 Dose: 0.1 mg Finasteride (Finasteride 5 Mg Tablet) 5 mg PO DAILY [facility] Last Admin: 07/09/22 09:22 Dose: 5 mg Folic Acid (Folic Acid 1 Mg Tablet) 1 mg PO DAILY [facility] Last Admin: 07/09/22 09:20 Dose: 1 mg Gabapentin (Gabapentin 100 Mg Capsule) 200 mg PO TID [facility] Last Admin: 07/09/22 09:22 Dose: 200 mg Hydroxyzine HCl (Hydroxyzine Hcl 25 Mg Tablet) 25 mg PO Q6H PRN PRN Reason: Anxiety Last Admin: 07/07/22 19:08 Dose: 25 mg Ibuprofen (Ibuprofen 800 Mg Tablet) 800 mg PO Q8H PRN PRN Reason: Pain, Moderate (Pain Scale 4-6 Last Admin: 07/09/22 09:21 Dose: 800 mg Lorazepam (Lorazepam 0.5 Mg Tablet) 0.5 mg PO BID [facility] Stop: 07/10/22 09:01 Last Admin: 07/09/22 09:22 Dose: Not Given Magnesium Hydroxide (Milk Of Magnesia 30 Ml Oral.Susp) 30 ml PO DAILY PRN PRN Reason: Constipation Ondansetron HCl (Ondansetron Odt 4 Mg Tab.Rapdis) 4 mg TRANSLINGU Q6H PRN PRN Reason: Nausea Last Admin: 07/08/22 14:10 Dose: 4 mg Pyridoxine HCl (Pyridoxine Hcl (Vitamin B6) 50 Mg Tablet) 25 mg PO DAILY [facility] Last Admin: 07/09/22 09:21 Dose: 25 mg Tamsulosin HCl (Tamsulosin Hcl 0.4 Mg Capsule) 0.8 mg PO BEDTIME [facility] Last Admin: 07/08/22 20:16 Dose: 0.8 mg Thiamine HCl (Thiamine Hcl 100 Mg Tablet) 50 mg PO DAILY [facility] Last Admin: 07/09/22 09:20 Dose: 50 mg Trazodone HCl (Trazodone Hcl 50 Mg Tablet) 50 mg PO BEDTIME PRN PRN Reason: Insomnia Last Admin: 07/07/22 20:34 Dose: 50 mg Trazodone HCl (Trazodone Hcl 100 Mg Tablet) 100 mg PO BEDTIME [facility] Last Admin: 07/08/22 20:17 Dose: 100 mg Allergies Allergies Allergy/AdvReac Type Severity Reaction Status Date / Time quetiapine [From Seroquel] Allergy Unknown Involuntary Unverified 07/06/22 06:02 Spasms Assessment & Plan Assessment & Plan (1) Suicidal ideation: Status: Acute Code(s): R45.851 - Suicidal ideations (2) Polysubstance use disorder: Status: Acute Code(s): F19.90 - Other psychoactive substance use, unspecified, uncomplicated (3) Alcohol withdrawal: Status: Acute Code(s): F10.939 - Alcohol use, unspecified with withdrawal, unspecified Plan adult male with a long history of alcohol use disorder, cocaine use disorder and opiate use disorder admitted after suicidal attempt by overdose on drugs. At this moment very limited information since the patient is on benzodiazepine withdrawal protocol. The patient has a long history of delirium tremens, and seizures induced by alcohol withdrawal. Plan placed on CIWA at admission. 3 days later changed to ativan taper. had a fall early on, was on 1:1 for fall risk. later in stay appeared better able to ambvulate. PT opined earlier problems were probably associated with withdrawal/medications and that he now appears able to ambulate safely. 1:1 DCed 07/08. 07/09: stable, feeling better each day. planning to discharge tomorrow. declined naltrexone. I spent ___20___ minutes with the patient and/or on the patient floor today, greater than?50% of which was spent counseling/coordinating care. Reason for contiued inpatient stay Substantial Risk for: inability to function and rapid decompensation
[2022-07-09 20:00] VITALS: BP 160/89; PULSE 78; RESP 18; TEMP 36.5; O2SAT 99
[2022-07-09] MEDS: LORazepam 0.5 MG TABLET PO (20:02)
[2022-07-09] MEDS: Tamsulosin HCL 0.4 MG CAPSULE 0.8 MG PO (20:03)
[2022-07-09] MEDS: traZODone HCL 100 MG TABLET PO (20:03)
[2022-07-10] MEDS: cloNIDine HCL 0.1 MG TABLET PO (03:38)
[2022-07-10 08:45] VITALS: BP 146/87; PULSE 79; RESP 18; TEMP 36.4; O2SAT 99
[2022-07-10] MEDS: Pyridoxine HCl (Vitamin B6) 50 MG TABLET 25 MG PO (08:47)
[2022-07-10] MEDS: Folic Acid 1 MG TABLET PO (08:47)
[2022-07-10] MEDS: Thiamine HCL 100 MG TABLET 50 MG PO (08:47)
[2022-07-10] MEDS: Gabapentin 100 MG CAPSULE 200 MG PO (08:48)
[2022-07-10] MEDS: LORazepam 0.5 MG TABLET PO (08:48)
[2022-07-10] MEDS: Finasteride 5 MG TABLET PO (08:48)
[2022-07-10] MEDS: Ibuprofen 800 MG TABLET PO (08:57)
--- NOTE | 2022-07-10 10:37 | PC.NURSE ---
Patient reports he is non smoker, has never smoked.
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
--- NOTE | 2022-07-10 11:11 | PC.NURSE ---
Patient is alert and oriented x4. Patient is alert and oriented. Patient is in agreement with discharge and verbalizes a readiness for discharge. Patient denies SI/HI/AH/VH. Patient denies acute complaints. Reports I do feel better since being here .
== END 2022-07-10 11:21 | disposition home or self-care (01) | DRG 897 ==
LOC: HO.ED 20:26 → HO.PADLT16 22:44
PROVIDERS: Nurse Practitioner Family; Admitting Provider Registered Nurse; Emergency Provider Emergency Medicine; Visit Provider Psychiatry & Neurology Psychiatry
DX: F10.129 Alcohol abuse with intoxication, unspecified (principal); R45.851 Suicidal ideations; F43.12 Post-traumatic stress disorder, chronic; F10.139 Alcohol abuse with withdrawal, unspecified; Y90.0 Blood alcohol level of less than 20 mg/100 ml; F14.10 Cocaine abuse, uncomplicated; F11.10 Opioid abuse, uncomplicated; Z20.822 Contact with and (suspected) exposure to COVID-19; Z88.8 Allergy status to other drugs, medicaments and biological substances; Z79.899 Other long term (current) drug therapy
CPT/HCPCS: 36415; 70450; 80053; 80061; 80307; 82077; 82607; 82746; 83036; 83735; 84439; 84443; 85025; 87635; 90686; 93005; 96372; 97161; 99285; J2560